=== PATIENT | female | born 1995 | race Caucasian/White ===

== ENCOUNTER 2017-12-16 11:38 | Emergency (ER) | payer OTHER ==
[~2017-12-16] VITALS: Ht 152.4 cm; Wt 77.1 kg
--- NOTE | ~2017-12-16 | EKG ---
[address] [address] ELECTROCARDIOGRAM REPORT Name: VICTORIANO LUZ Room #: [facility]#: [id number] Admission: 12/16/17 Attend Phys: Discharge: 12/16/17 Date of : [birth year] Report #: [id number] THIS REPORT FOR: //name// [facility] ED Test Date: 2017-12-16 Test Time: 11:54:49 Pat Name: VICTORIANO LUZ Department: Room: Gender: F Powder Monkey: vincenzo : 1995 Requested By: Danielle Horne Order Number: [id number] MD: Gallito Anderson Measurements Intervals [place] Rate: 51 P: 53 [place]: 127 QRS: -6 QRSD: 88 T: 34 QT: 453 QTc: 418 Interpretive Statements Sinus rhythm No previous ECG available for comparison Electronically Signed On 12-17-2017 10:57:58 CDT by Gallito Anderson [email or web address] <ELECTRONICALLY SIGNED> By: Gallito Anderson MD 12/17/17 1057 1154 1154 MD TIM Greene
[~2017-12-16 11:38] MED LIST: IBUPROFEN 600600 M1 PO; MEDROXYPROGESTERONE; PHENERGAN 25 MG25 M1 PO; VITAFOL-OB+DHA1 EACH PO
[2017-12-16] MEDS ORDERED: NORCO 5-325 TA1 EACH PO (11:57)
[2017-12-16 13:00] VITALS: BP 126/84
== END 2017-12-16 13:00 | disposition home or self-care (01) ==
LOC: ER 11:38
DX: M94.0 Chondrocostal junction syndrome [Tietze] (principal); R09.1 Pleurisy; F17.210 Nicotine dependence, cigarettes, uncomplicated